=== PATIENT | male | born 1970 | race Caucasian/White ===

== ENCOUNTER → 2021-05-10 | Outpatient (CLI) | payer OTHER ==
[2021-05-10 18:00] LABS: ABSOLUTE EOSINOPHILS 0.1 thou/uL (0.0-0.7); ABSOLUTE LYMPHOCYTES 1.1 thou/uL (0.8-5.3); ABSOLUTE MONOCYTES 0.7 thou/uL (0.0-1.2); ABSOLUTE NEUTROPHILS 8.1 thou/uL (1.6-8.1); BASOPHILS 0.4 %; EOSINOPHILS 0.5 %; HEMATOCRIT 43.6 % (42.0-52.0); HEMOGLOBIN 15.2 gm/dL (14.0-18.0); LYMPHOCYTES 11.2 %; MCH 29.4 pg (26.0-34.0); MCHC 34.8 g/dL (28.0-37.0); MCV 84.3 fL (80.0-100.0); MONOCYTES 6.8 %; MPV 8.1 fl. (7.2-11.1); NUCLEATED RBCS 0 /100WBC; PLATELET COUNT* 213 thou/uL (150-400); POLYS 81.1 %; RBC 5.17 mil/uL (4.50-6.00); RDW-CV 12.9 % (10.5-14.5)
[2021-05-10 18:10] LABS: ALBUMIN 4.3 g/dL (3.4-5.0); CALCIUM 9.6 mg/dL (8.5-10.1); POTASSIUM 3.8 mmol/L (3.5-5.1); TOTAL BILIRUBIN 0.6 mg/dL (<0.1-1.0); TOTAL PROTEIN 7.7 g/dL (6.4-8.2)
== END ==
LOC: M.LAB 17:30
PROVIDERS: ATTEND Internal Medicine
DX: I10 Essential (primary) hypertension (principal); K21.9 Gastro-esophageal reflux disease without esophagitis; R91.1 Solitary pulmonary nodule; R07.89 Other chest pain